=== PATIENT | female | born 1960 | race Two or more races ===

== ENCOUNTER 2022-12-29 06:09 | Day surgery (SDC) | payer OTHER ==
[~2022-12-29] VITALS: Ht 167.6 cm; Wt 72.6 kg
[~2022-12-29 06:09] MED LIST: CRESTOR20 MG PO; GLIMEPIRIDE2 M1 PO; JANUMET XR 50-1 EAC1 PO
[2022-12-29] MEDS ORDERED: MORGIDOX100 MG PO (08:46)
[2022-12-29] MEDS ORDERED: NAPR500T14 PO (08:46)
== END 2022-12-29 14:30 | disposition home or self-care (01) ==
LOC: CIR.AMB 06:09
PROVIDERS: ATTEND Obstetrics & Gynecology
DX: D25.0 Submucous leiomyoma of uterus (principal); N95.0 Postmenopausal bleeding; N84.0 Polyp of corpus uteri; Z20.822 Contact with and (suspected) exposure to COVID-19